=== PATIENT | male | born 1980 | race African-American/Black ===

== ENCOUNTER 2024-02-20 09:23 | Day surgery (SDC) | payer OTHER ==
[~2024-02-20 09:23] MED LIST: Sodium Chloride 0.9% 10 ML Syringe FLUSH PRN; Sodium Chloride 0.9% 2.5 ML Syringe FLUSH PRN; Sodium Chloride 0.9% 20 ML SDV IV PRN; ceFAZolin 2 GM in Sodium Chloride 0.9% 50 ML IV ONE
[2024-02-20] MEDS ORDERED: Ketamine HCL/NACL, ISO-OSM 50 MG/5 ML Syringe ONE (09:24)
[2024-02-20] MEDS ORDERED: Propofol 200 MG/20 ML SDV ONE ×2 (09:24→10:46)
[2024-02-20] MEDS ORDERED: Morphine 10 MG/ML SDV ONE (09:24)
[2024-02-20] MEDS ORDERED: fentaNYL 250 MCG/5 ML SDV ONE ×2 (09:24→10:27)
[2024-02-20] MEDS ORDERED: Famotidine 20 MG/2 ML SDV ONE (09:25)
[2024-02-20] MEDS ORDERED: Ropivacaine 0.5% 5 MG/ML 30 ML SDV ONE (09:25)
[2024-02-20] MEDS ORDERED: fentaNYL 50 MCG/ML SDV IVPUSH PRN (09:44)
[2024-02-20] MEDS ORDERED: Metoclopramide 10 MG/2 ML SDV IVPUSH PRN (09:44)
[2024-02-20] MEDS ORDERED: Morphine 2 MG/ML SYRINGE IVPUSH PRN (09:44)
[2024-02-20] MEDS ORDERED: Albuterol 0.083% 2.5 MG/3 ML Neb Soln NEB PRN (09:44)
[2024-02-20] MEDS ORDERED: Naloxone 0.4 MG/ML SDV IVPUSH PRN (09:44)
[2024-02-20] MEDS ORDERED: droPERidol 5 MG/2 ML SDV IVPUSH PRN (09:44)
[2024-02-20] MEDS ORDERED: Ondansetron 4 MG/2 ML SDV IVPUSH PRN (09:44)
[2024-02-20] MEDS ORDERED: HYDROmorphone 1 MG/ML Syringe IVPUSH PRN (09:44)
[2024-02-20] MEDS ORDERED: Bupivacaine 0.5% 30 ML SDV ONE (09:47)
[2024-02-20] MEDS: Lactated Ringers 1,000 ML IV SCH (10:04)
[2024-02-20] MEDS ORDERED: ceFAZolin 2 GM Vial ONE (10:15)
[2024-02-20] MEDS ORDERED: Ketorolac 30 MG/ML SDV ONE (10:29)
[2024-02-20] MEDS ORDERED: Dexamethasone 4 MG/ML 5 ML MDV ONE (10:29)
[2024-02-20] MEDS ORDERED: Ondansetron 4 MG/2 ML SDV ONE (10:29)
[2024-02-20] MEDS ORDERED: Rocuronium Bromide 50 MG/5 ML Syringe ONE (10:29)
[2024-02-20] MEDS ORDERED: Sugammadex Sodium 200 MG/2 ML VIAL IV ONE (10:45)
== END 2024-02-20 12:10 | disposition home or self-care (01) ==
LOC: MW.SDS 09:23
PROVIDERS: ATTEND Surgery
DX: K42.0 Umbilical hernia with obstruction, without gangrene (principal); I10 Essential (primary) hypertension; E66.9 Obesity, unspecified; Z68.38 Body mass index [BMI] 38.0-38.9, adult; F17.290 Nicotine dependence, other tobacco product, uncomplicated
CPT/HCPCS: 49592; 64488; J0131; J0665; J0690; J1100; J1885; J2270; J2405; J2704; J2795; J3010; J3490; J7120; 00790

== ENCOUNTER 2025-04-19 10:23 | Emergency (ER) | payer MEDICAID ==
[2025-04-19 10:57] LABS: BASOPHILS ABSOLUTE AUTO 0.06 K/uL (0.00-0.20); BASOPHILS PERCENT AUTO 0.5 % (0.0-1.0); EOSINOPHILS ABSOLUTE AUTO 0.04 K/uL (0.00-0.45); EOSINOPHILS PERCENT AUTO 0.3 % (0.0-6.0); HEMATOCRIT 54.5 % (42.0-52.0); HEMOGLOBIN 18.2 g/dL (14.0-18.0); IMMATURE GRAN ABSOLUTE AUTO 0.04 K/uL (0.00-0.05); IMMATURE GRAN PERCENT AUTO 0.3 % (0.0-0.4); LYMPHOCYTES ABSOLUTE AUTO 1.47 K/uL (1.00-4.80); LYMPHOCYTES PERCENT AUTO 12.1 % (24.0-44.0); MEAN CORPUSCULAR HEMOGLOBIN 28.3 pg (28.0-32.0); MEAN CORPUSCULAR HGB CONC 33.4 g/dL (32.0-36.0); MEAN CORPUSCULAR VOLUME 84.9 fL (83.0-99.0); MEAN PLATELET VOLUME 10.5 fL (9.4-12.4); MONOCYTES PERCENT AUTO 8.3 % (0.0-8.0); NEUTROPHILS PERCENT AUTO 78.5 % (41.0-71.0); PLATELET COUNT,PLT 300 K/uL (150-400); RED BLOOD CELL COUNT 6.42 M/uL (4.52-5.90); WHITE BLOOD CELL COUNT,WBC 12.11 K/uL (3.9-11.3)
[2025-04-19] MEDS: Sodium Chloride 0.9% 1,000 ML IV ONE (11:09)
[2025-04-19] MEDS: Ketorolac 30 MG/ML SDV IVPUSH ONE (11:10)
[2025-04-19] MEDS: Ondansetron 4 MG/2 ML SDV IVPUSH ONE (11:10)
[2025-04-19 11:16] LABS: A/G RATIO 1.2 (0.9-1.6); ALANINE AMINOTRANSFERASE,ALT 53 IU/L (14-63); ALBUMIN 4.2 g/dL (3.4-5.0); ALKALINE PHOSPHATASE 48 U/L (46-116); ASPARTATE AMNIOTRANSFERASE,AST 48 IU/L (15-37); BILIRUBIN TOTAL 0.5 mg/dL (0.2-1.0); BLOOD UREA NITROGEN,BUN 15 mg/dL (7.0-18.0); CARBON DIOXIDE,CO2 29.8 mmol/L (21.0-32.0); CHLORIDE,CL 101 mmol/L (98-107); CREATININE 1.5 mg/dL (0.8-1.3); EST CRCL DRUG DOSING (CG) 68.98 mL/min; GLUCOSE RANDOM 121 mg/dL (74-106); LIPASE 29 U/L (16-77); MAGNESIUM 2.1 mg/dL (1.8-2.4); POTASSIUM,K 4.3 mmol/L (3.5-5.1); PRO B-TYPE NATRIUR PEPT,BNPPRO 22 pg/mL (0-125); PROTEIN TOTAL,TP 7.6 g/dL (6.4-8.2); SODIUM,NA 137 mmol/L (136-148)
[2025-04-19 11:19] LABS: ESTIMATED GFR 59 mL/min (>60); ETHANOL BLOOD MEDICAL < 3.0 mg/dL
[2025-04-19] MEDS: Iopamidol 755 MG/ML 500 ML Multipack Bottle IVPUSH STA ×2 (12:06)
[2025-04-19] MEDS: Labetalol 100 MG/20 ML MDV IVPUSH ONE (12:14)
[2025-04-19] MEDS: fentaNYL 100 MCG/2 ML SDV IVPUSH ONE ×2 (12:33→13:23)
[2025-04-19] MEDS: Esmolol/Normal Saline 2,500 MG/250 ML BAG IV SCH (12:36)
[2025-04-19] MEDS: niCARdipine/Normal Saline 20 MG in Premix Bag 1 BAG IV SCH (13:48)
== END 2025-04-19 15:01 ==
LOC: MW.ED 10:23
DX: N28.0 Ischemia and infarction of kidney (principal); I71.00 Dissection of unspecified site of aorta; E66.9 Obesity, unspecified; Z75.3 Unavailability and inaccessibility of health-care facilities; Z68.42 Body mass index [BMI] 45.0-49.9, adult
CPT/HCPCS: 36415; 36430; 71046; 71275; 74174; 74177; 80053; 80307; 83690; 83735; 83880; 84484; 85025; 85379; 86850; 86900; 86901; 86920; 93005; 96365; 96366; 96367; 96375; 96376; 99285; J1805; J1885; J1920; J2405; J3010; J7030; P9016; Q9967; 93010; J3490